=== PATIENT | female | born 1935 | race Caucasian/White ===

== ENCOUNTER 2017-07-09 09:33 | Day surgery (SDC) | payer MEDICARE, OTHER ==
[~2017-07-09 09:33] MED LIST: Lactated Ringers 1,000 ML IV SCH; Lidocaine 1% 50 ML MDV ONE; Lidocaine 1%/Sod Bicarbonate in NS 8.4% 1 ML Syringe PRN; Sodium Chloride 0.9% 10 ML Syringe FLUSH PRN
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
[2017-07-09] MEDS ORDERED: Heparin Sodium 5,000 Units/ML Vial ONE (10:31)
[2017-07-09] MEDS ORDERED: Propofol 200 MG/20 ML SDV ONE (10:52)
[2017-07-09] MEDS ORDERED: Lidocaine 1% 2 ML ONE ×2 (10:53)
--- NOTE | 2017-07-09 11:07 | PCM.OPNOTE ---
- General Post-Op/Procedure Note Date of Surgery/Procedure: 07/09/17 Operative Procedure(s): bone marrow bx and aspiration Pre Op Diagnosis: thrombocytosis Post-Op Diagnosis: Same Anesthesia Technique: MAC Primary Surgeon: Khoa Chacko EBL in mLs: 0 Complications: None Condition: Good
--- NOTE | 2017-07-09 11:21 | PCM48HPAN ---
Post Anesthesia Note - EVALUATION WITHIN 48HRS OF ANESTHETIC Vital Signs in Normal Range: Yes Patient Participated in Evaluation: Yes Respiratory Function Stable: Yes Airway Patent: Yes Cardiovascular Function Stable: Yes Hydration Status Stable: Yes Pain Control Satisfactory: Yes Nausea and Vomiting Control Satisfactory: Yes Mental Status Recovered: Yes
[2017-07-09 12:01] VITALS: BP 118/71
--- NOTE | 2017-07-09 14:14 | OR ---
DATE OF OPERATION: 07/09/2017 SURGEON: Khoa Chacko MD PREOPERATIVE DIAGNOSIS: Thrombocytosis. POSTOPERATIVE DIAGNOSIS: Thrombocytosis. OPERATION PERFORMED: Bone marrow biopsy and aspirate from the right posterior iliac spine. ANESTHESIA: Done under IV sedation, local anesthetic of 1% Xylocaine. DESCRIPTION OF PROCEDURE: The patient was taken to the GI room, placed in a supine position, connected to monitoring equipment. She was given IV sedation and placed in the left lateral position. The posterior iliac spine and back were then prepped with chlorhexidine and draped off in a sterile fashion. A skin incision was made over the posterior iliac spine after anesthetizing with 1% Xylocaine. Using a trocar, this was introduced into the spine, into the bone marrow, and bone marrow aspirate was then obtained. This was followed by bone marrow biopsy, which were then both handed over to lab technicians for plating. Pressure was placed on the site. The patient tolerated the procedure and sent to recovery room in a stable condition. ESTIMATED BLOOD LOSS: MMODAL /[id number]
== END 2017-07-09 12:30 | disposition home or self-care (01) ==
LOC: JD.SDS 09:33
PROVIDERS: ATTEND Surgery
PROC: 07DR3ZX Extraction of Iliac Bone Marrow, Percutaneous Approach, Diagnostic (ICD-10-PCS; principal; 2017-07-09)
PROC: 079T3ZX Drainage of Bone Marrow, Percutaneous Approach, Diagnostic (ICD-10-PCS; 2017-07-09)
DX: D47.3 Essential (hemorrhagic) thrombocythemia (principal); E03.9 Hypothyroidism, unspecified; M19.90 Unspecified osteoarthritis, unspecified site; Z87.891 Personal history of nicotine dependence; Z79.899 Other long term (current) drug therapy
CPT/HCPCS: 36415; 38221; 85025; 85045; 85097; G0364; J1642; J1644; J7120; 01112; 88184; 88185; 88305; 88311; 88313; J2704

== ENCOUNTER 2022-02-11 11:11 | Emergency (ER) | payer MEDICARE, OTHER ==
[2022-02-11 11:31] VITALS: BP 120/77; PULSE 110
[2022-02-11] MEDS ORDERED: HYDROmorphone 0.5 MG/0.5 ML Syringe IM ONE (13:01)
== END 2022-02-11 15:00 | disposition home or self-care (01) ==
LOC: JD.ED 11:11
DX: S02.602A Fracture of unspecified part of body of left mandible, initial encounter for closed fracture (principal); I48.91 Unspecified atrial fibrillation; I50.9 Heart failure, unspecified; Z79.899 Other long term (current) drug therapy; Z79.01 Long term (current) use of anticoagulants; Z86.73 Personal history of transient ischemic attack (TIA), and cerebral infarction without residual deficits; W22.09XA Striking against other stationary object, initial encounter
CPT/HCPCS: 70486; 96372; 99283; J1170; 99284